=== PATIENT | male | born 1955 | race African-American/Black ===

== ENCOUNTER 2021-02-10 09:37 | Emergency (ER) | payer OTHER ==
[~2021-02-10] VITALS: Ht 180.3 cm; Wt 75.0 kg
[2021-02-10 09:39] VITALS: BP_DIAS 60
[2021-02-10] MEDS ORDERED: IBUPROFEN 400MG TABLET PO ONE (12:15)
[2021-02-10] MEDS ORDERED: ACETAMINOPHEN 325MG TABLET PO ONE (12:15)
[2021-02-10 15:21] VITALS: BP_SYST 123
== END 2021-02-10 15:21 | disposition home or self-care (01) ==
LOC: ER 09:37
DX: R60.0 Localized edema (principal); I87.8 Other specified disorders of veins; Z98.890 Other specified postprocedural states
CPT/HCPCS: 93971; 99284